=== PATIENT | female | born 2000 | race Caucasian/White ===

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

== ENCOUNTER → 2023-03-16 | Outpatient (CLI) | payer OTHER, BC ==
--- NOTE | 2023-03-16 10:43 | US ---
EXAMINATION TYPE: US thyroid st tissue head/neck DATE OF EXAM: 03/16/2023 COMPARISON: NONE CLINICAL INDICATION: Female, 22 years old with history of Z80.8 FAMI HX OF CA; No abnormal labs. GLAND SIZE: Right Lobe: 5.0 x 1.4 x 3.2 cm Overall Parenchyma: homogenous Left Lobe: 4.2 x 1.4 x 1.0 cm Overall Parenchyma: homogeneous Isthmus Thickness: 0.3 cm NODULES RIGHT: # of nodules measured on right: 0 LEFT: # of nodules measured on left: 0 ISTHMUS: # of nodules measured in the isthmus: 0 Bilateral neck scanned, no evidence of lymphadenopathy. IMPRESSION: Unremarkable thyroid ultrasound without discrete nodule.
[2023-03-16 17:03] LABS: T4, Free (Free Thyroxine) 1.49 ng/dL (0.80-1.80)
[2023-03-16 18:42] LABS: Gliadin AB IgA, Deaminated Negative (Negative); Gliadin AB IgA, Unit 1.5 U/mL; Gliadin AB IgG, Deaminated Negative (Negative); Gliadin AB IgG, Unit 0.5 U/mL
== END | disposition home or self-care (01) ==
LOC: RADUSWWP 10:15
PROVIDERS: ATTEND Family Medicine
DX: Z80.8 Family history of malignant neoplasm of other organs or systems (principal)
CPT/HCPCS: 76536; 82785; 83516; 84439; 84443; 84481; 86003; 86376